=== PATIENT | male | born 1965 | race Caucasian/White ===

== ENCOUNTER 2018-12-10 09:45 | Emergency (ER) | payer MEDICAID ==
[~2018-12-10] VITALS: Ht 198.1 cm; Wt 138.0 kg
[2018-12-10] MEDS ORDERED: EPINEPHrine 1:10,000 [1 MG/10 ML] SYRINGE IVP ONE (09:48)
[2018-12-10] MEDS ORDERED: SODIUM BICARBONATE [ADULT] 8.4% 50 MEQ/50 ML SYRINGE IVP ONE (09:48)
[2018-12-10] MEDS ORDERED: CALCIUM CHLORIDE 100 MG/ML 10 ML SYRINGE IVP ONE (09:48)
[2018-12-10 10:55] VITALS: BP 0/0
== END 2018-12-10 15:23 | disposition expired ==
LOC: EMS 09:47
DX: I46.9 Cardiac arrest, cause unspecified (principal)
CPT/HCPCS: 31500; 92950; 99291; J0171; J3490 ×2